=== PATIENT | female | born 1955 | race Caucasian/White ===

== ENCOUNTER 2017-11-22 06:40 | Observation (INO) ==
[2017-11-22] MEDS ORDERED: DEXTROSE 5%-NS 1,000 ML IV ONE (06:54)
[2017-11-22] MEDS ORDERED: 0.9 % SODIUM CHLORIDE 1,000 ML IV ONE (07:06)
[2017-11-22] MEDS ORDERED: LEVOFLOXACIN 750 MG/150 ML BAG IV ONE (07:28)
--- NOTE | 2017-11-22 07:38 | Emergency Department Note ---
SOB HPI - General Chief Complaint: Shortness of Breath/Dyspnea Stated Complaint: cold sweats, shortness of breath Time Seen by Provider: 11/22/17 07:12 Source: patient, family Mode of arrival: ambulatory Limitations: no limitations - History of Present Illness 62 year old female with longstanding intermittent dyspnea who recently underwent nuclear perfusion stress testing on 11/18/[address] Emili Lofton at [facility] which was normal now presenting this morning after waking up this morning feeling fatigued with associated increased dyspnea, cold sweats. No known sick contacts. No dysuria, no cough, no change to urinary frequency. She presents initially with temperature down into 94.0F range, and with glucose initially at 76. Patient is able to speak 3-4 word sentences. Not lethargic nor obtunded, simply slow to respond to questions, mild increased I/E with slight increased work of breathing. - Related Data Home Medications Medication Instructions Recorded Confirmed cholecalciferol (vitamin D3) 2,000 2,000 unit PO QDAY cap 10/11/14 11/22/17 unit capsule gabapentin 300 mg capsule 600 mg PO QHS cap 09/03/15 11/22/17 propranolol 60 mg tablet 60 mg PO DAILY 30 Days #30 02/21/16 11/22/17 tizanidine 2 mg capsule 4 mg PO .COMPLEX cap 12/08/16 11/22/17 aspirin 81 mg tablet,delayed 81 mg PO QDAY 02/26/17 11/22/17 release ticagrelor 90 mg tablet 90 mg PO BID 02/26/17 11/22/17 furosemide 20 mg tablet 20 mg PO QDAY 07/20/17 11/22/17 losartan 100 mg tablet 50 mg PO QDAY 07/20/17 11/22/17 amLODIPine [Norvasc] 5 mg PO DAILY 11/22/17 11/22/17 Previous Rx's Medication Instructions Recorded levothyroxine 100 mcg tablet 100 mcg PO QDAY #90 tab 02/27/17 rizatriptan 10 mg disintegrating 10 mg PO Q2H PRN #12 tab 07/20/17 tablet acetaminophen 300 mg-codeine 30 mg 1 tab PO Q6H PRN #120 tab 08/14/17 tablet lansoprazole 30 mg delayed 30 mg PO QDAY #90 tab 10/01/17 release,disintegrating tablet hydrocodone 10 mg-acetaminophen 1 tab PO QID PRN #120 tab 10/26/17 325 mg tablet Allergies Allergy/AdvReac Type Severity Reaction Status Date / Time No Known Drug Allergies Allergy Verified 11/22/17 06:47 Review of Systems All systems ED: reviewed and negative except as stated. Past Medical History - Past Medical History Source: nursing notes reviewed Medical history: Reports: arthritis, CHF, coronary artery disease, GERD, hyperlipidemia, hypertension, kidney stones (Questionable), migraine, myocardial infarction, osteoporosis, thyroid disease, valvular heart disease, other (Ulcerative colitis, C. difficile) Surgical history ED: Reports: angioplasty/stent, hysterectomy, orthopedic, other (Shoulder) - Social History smoking status: Former smoker Physical Exam Limitations: no limitations General appearance: alert, anxious, in no apparent distress Head: atraumatic, normocephalic Eye: Present: normal appearance, PERRL, EOMI ENT: normal exam, normal oropharynx, mucous membranes dry Neck: Present: normal inspection, full ROM Chest: Present: normal inspection, symmetric chest wall rise Respiratory: Present: other (distant lung sounds wtih faint bibasilar crackles) Cardiovascular: Present: regular rate, normal rhythm, normal heart sounds. Absent: systolic murmur, diastolic murmur, rubs, gallop Abdominal: Present: soft, normal bowel sounds. Absent: distention, tenderness, guarding, rebound Extremities: Present: normal inspection, full ROM. Absent: tenderness Back: Present: normal inspection, full ROM. Absent: tenderness, CVA tenderness (R), CVA tenderness (L) Skin: Present: mottled, other (cool) Course Vital Signs Temperature 94.0 F L 11/22/17 06:41 Pulse Rate 81 11/22/17 06:41 Respiratory Rate 82 H 11/22/17 06:41 Blood Pressure 176/87 11/22/17 06:41 Pulse Oximetry (%) 100 11/22/17 06:41 Temperature 96.9 F L 11/22/17 09:00 Pulse Rate 90 11/22/17 08:45 Respiratory Rate 11 L 11/22/17 07:01 Blood Pressure 139/84 11/22/17 09:00 Pulse Oximetry (%) 99 11/22/17 08:45 Shortness of Breath/Dyspnea - [facility] Narrative Medical decision making narrative: patient presenting meeting SIRS criteria with hypothermia at 94.0F, tachypnea at 20. Underwent UA, XR chest, CBC, CMP, venous lactic acid, procalcitonin, blood culture, which demonstrated + leuk esterase, WBC, with normal venous lactic acid, negative XR chest. Patient given initially D5NS 500cc which corrected mild hypoglycemia from 76 to 220, then switched to warm NS. FC with temperature probe placed. Patient started on Levaquin 750mg IV within first hour of arrival. EKG demonstrating NSR, 0.5-1mm ST depression in inferior leads , otherwise normal. Patient handed off to Dr. Vicente at 9am with plans for admission for urosepsis and hypothermia. - Lab Data Lab results reviewed: Yes I reviewed the patient's lab results. Result diagrams: 11/22/17 06:56 11/22/17 06:56 Lab Results 11/22/17 11/22/17 11/22/17 Range/Units 06:56 06:56 07:05 WBC 12.8 H (4.5-11.0) K/mcL RBC 3.84 L (4.00-5.20) M/mcL Hgb 11.9 L (12.0-15.0) g/dL Hct 35.4 L (36.0-48.0) % POC Hct 38.0 (36.0-48.0) % MCV 92.4 (80.0-100.0) fL MCH 31.1 (26.0-34.0) pg MCHC 33.7 (31.0-36.0) g/dL RDW 13.5 (11.5-14.5) % Plt Count 387 (140-440) K/mcL MPV 7.5 (7.4-10.4) fL Gran % 73.9 (38.0-78.0) % Lymph % (Auto) 18.6 (15.5-49.0) % [place] % (Auto) 5.0 (1.0-12.0) % Eos % (Auto) 2.2 (0.0-7.0) % Baso % (Auto) 0.3 (0.0-2.0) % Gran # 9.5 H (1.8-8.0) K/mcL Lymph # (Auto) 2.4 (1.5-4.8) K/mcL [place] # (Auto) 0.6 (0.1-0.9) K/mcL Eos # (Auto) 0.3 (0.0-0.7) K/mcL Baso # (Auto) 0 (0.0-0.3) K/mcL D-Dimer (0.00-0.40) ug/ml VBG Lactic Acid 1.0 (0.5-2.2) mmol/L POC Sodium 140 (133-145) mmol/L Sodium 142 (133-145) mmol/L POC Potassium 3.5 (3.3-5.1) mmol/L Potassium 3.6 (3.3-5.1) mmol/L POC Chloride 104 (96-108) mmol/L Chloride 100 (96-108) mmol/L Carbon Dioxide 20 L (22-30) mmol/L POC Total CO2 22 (22-30) mmol/L Anion Gap 22.0 H (8-16) POC BUN 20 (8-23) mg/dl BUN 19 (8-23) mg/dl Creatinine 1.0 (0.6-1.1) mg/dl POC Creatinine 1.0 (0.6-1.1) mg/dl GFR Calculation 61 Glucose 73 (70-105) mg/dL POC Glucose 76 (70-105) mg/dL Calcium 10.2 (8.6-10.4) mg/dl POC WB Ioniz Calcium 1.19 (1.16-1.32) mmol/L Total Bilirubin 1.0 (0.0-1.0) mg/dL AST 128 H (0-37) U/l ALT 35 (0-40) U/l Alkaline Phosphatase 60 (39-117) U/L Troponin T (0-0.03) ng/ml Total Protein 7.5 (5.9-8.4) gm/dL Albumin 4.5 (3.2-5.2) gm/dL Globulin 3.0 (2.2-3.7) gm/dL Albumin/Globulin Ratio 1.5 (1.0-2.3) Urine Color Urine Appearance Urine pH (5.0-9.0) Ur Specific [place] (1.000-1.035) Urine Protein (NEG) mg/dL Urine Glucose (UA) (NEG) mg/dL Urine Ketones (NEG) mg/dL Urine Occult Blood (<0.03) mg/dL Urine Nitrate (NEG) Urine Bilirubin (NEG) mg/dL Urine Urobilinogen (NEG) mg/dL Ur Leukocyte Esterase (NEG) /uL Urine RBC (0-1) /hpf Urine WBC (0-4) /hpf Ur Squamous Epith Cells (0-4) /hpf Urine Bacteria (0) /hpf Hyaline Casts (0-2) /lpf Urine Mucus (0) /hpf Ur Culture Indicated? 11/22/17 11/22/17 11/22/17 Range/Units 07:45 07:45 08:05 WBC (4.5-11.0) K/mcL RBC (4.00-5.20) M/mcL Hgb (12.0-15.0) g/dL Hct (36.0-48.0) % POC Hct (36.0-48.0) % MCV (80.0-100.0) fL MCH (26.0-34.0) pg MCHC (31.0-36.0) g/dL RDW (11.5-14.5) % Plt Count (140-440) K/mcL MPV (7.4-10.4) fL Gran % (38.0-78.0) % Lymph % (Auto) (15.5-49.0) % [place] % (Auto) (1.0-12.0) % Eos % (Auto) (0.0-7.0) % Baso % (Auto) (0.0-2.0) % Gran # (1.8-8.0) K/mcL Lymph # (Auto) (1.5-4.8) K/mcL [place] # (Auto) (0.1-0.9) K/mcL Eos # (Auto) (0.0-0.7) K/mcL Baso # (Auto) (0.0-0.3) K/mcL D-Dimer 0.30 (0.00-0.40) ug/ml VBG Lactic Acid (0.5-2.2) mmol/L POC Sodium (133-145) mmol/L Sodium (133-145) mmol/L POC Potassium (3.3-5.1) mmol/L Potassium (3.3-5.1) mmol/L POC Chloride (96-108) mmol/L Chloride (96-108) mmol/L Carbon Dioxide (22-30) mmol/L POC Total CO2 (22-30) mmol/L Anion Gap (8-16) POC BUN (8-23) mg/dl BUN (8-23) mg/dl Creatinine (0.6-1.1) mg/dl POC Creatinine (0.6-1.1) mg/dl GFR Calculation Glucose (70-105) mg/dL POC Glucose (70-105) mg/dL Calcium (8.6-10.4) mg/dl POC WB Ioniz Calcium (1.16-1.32) mmol/L Total Bilirubin (0.0-1.0) mg/dL AST (0-37) U/l ALT (0-40) U/l Alkaline Phosphatase (39-117) U/L Troponin T < 0.01 (0-0.03) ng/ml Total Protein (5.9-8.4) gm/dL Albumin (3.2-5.2) gm/dL Globulin (2.2-3.7) gm/dL Albumin/Globulin Ratio (1.0-2.3) Urine Color Yellow Urine Appearance Hazy Urine pH 6.0 (5.0-9.0) Ur Specific [place] 1.011 (1.000-1.035) Urine Protein Neg (NEG) mg/dL Urine Glucose (UA) 150 A (NEG) mg/dL Urine Ketones 20 A (NEG) mg/dL Urine Occult Blood 0.03 A (<0.03) mg/dL Urine Nitrate Neg (NEG) Urine Bilirubin Neg (NEG) mg/dL Urine Urobilinogen Neg (NEG) mg/dL Ur Leukocyte Esterase Neg (NEG) /uL Urine RBC < 1 (0-1) /hpf Urine WBC < 1 (0-4) /hpf Ur Squamous Epith Cells 3 (0-4) /hpf Urine Bacteria Few A (0) /hpf Hyaline Casts 5 H (0-2) /lpf Urine Mucus Few (0) /hpf Ur Culture Indicated? Yes - Radiology Data Radiology results reviewed: Yes I reviewed the patient's radiology results. Disposition Pt seen by PAINTING INSTRUCTOR/PA only: No Clinical Impression: Sepsis Qualifiers: Sepsis type: sepsis due to unspecified organism Qualified Code(s): A41.9 - Sepsis, unspecified organism UTI (urinary tract infection) Qualifiers: Urinary tract infection type: acute pyelonephritis Qualified Code(s): N10 - Acute pyelonephritis Disposition: Still a Patient Referrals: Joe Camejo MD [Primary Care Provider] -
[2017-11-22 07:39] LABS: Basophils # (Auto) 0 K/mcL (0.0-0.3); Basophils % (Auto) 0.3 % (0.0-2.0); Eosinophils # (Auto) 0.3 K/mcL (0.0-0.7); Eosinophils % (Auto) 2.2 % (0.0-7.0); Granulocytes % (Auto) 73.9 % (38.0-78.0); Lymphocytes # (Auto) 2.4 K/mcL (1.5-4.8); Lymphocytes % (Auto) 18.6 % (15.5-49.0); Mean Cell Volume 92.4 fL (80.0-100.0); Mean Corpuscular HGB Conc 33.7 g/dL (31.0-36.0); Mean Corpuscular Hemoglobin 31.1 pg (26.0-34.0); Monocytes # (Auto) 0.6 K/mcL (0.1-0.9); Platelet Count 387 K/mcL (140-440); RBC 3.84 M/mcL (4.00-5.20); Red Cell Distribution Width 13.5 % (11.5-14.5)
[2017-11-22 08:03] LABS: ALT/SGPT 35 U/l (0-40); Albumin 4.5 gm/dL (3.2-5.2); Albumin/Globulin Ratio 1.5 (1.0-2.3); Alkaline Phosphatase 60 U/L (39-117); Blood Urea Nitrogen 19 mg/dl (8-23)
[2017-11-22 08:46] LABS: Appearance,Urine HAZY; Bacteria,Urine FEW /hpf (0); Bilirubin,Urine NEG (NEG); Color,Urine YELLOW; Glucose,Urine (UA) 150 mg/dL (NEG); Leukocyte Esterase,Urine NEG /uL (NEG); Mucus,Urine FEW /hpf (0); Protein,Urine NEG (NEG); Specific Gravity,Urine 1.011 (1.000-1.035); Urine Blood 0.03 mg/dL (<0.03); Urine Hyaline Cast 5 /lpf (0-2); Urine RBC < 1 /hpf (0-1); Urine Squamous Epithelial Cell 3 /hpf (0-4); Urine WBC < 1 /hpf (0-4); Urobilinogen,Urine NEG (NEG)
[2017-11-22] MEDS ORDERED: 0.9 % SODIUM CHLORIDE 2,000 ML IV ONE (09:31)
[2017-11-22] MEDS ORDERED: 0.9 % SODIUM CHLORIDE 1,000 ML IV SCH (09:45)
[2017-11-22] MEDS ORDERED: THIAMINE 100 MG in 0.9 % SODIUM CHLORIDE 50 ML IV SCH (10:22)
[2017-11-22] MEDS ORDERED: ONDANSETRON 4 MG/2 ML VIAL IV PRN (10:22)
[2017-11-22] MEDS ORDERED: ACETAMINOPHEN W/CODEINE #3 1 TABLET PO PRN (10:22)
[2017-11-22] MEDS ORDERED: LACTATED RINGERS 1,000 ML IV SCH ×2 (10:22→14:05)
[2017-11-22] MEDS ORDERED: oxyCODONE HCL 5 MG TABLET PO PRN (10:22)
[2017-11-22] MEDS ORDERED: HYDROmorphone 2 MG/ML VIAL IV PRN (10:22)
[2017-11-22] MEDS ORDERED: ACETAMINOPHEN 325 MG TABLET PO PRN (10:22)
[2017-11-22] MEDS ORDERED: NALOXONE HCL 0.4 MG/ML VIAL IV PRN (10:22)
[2017-11-22] MEDS ORDERED: RIZATRIPTAN BENZOATE 10 MG PO PRN (10:22)
[2017-11-22 11:02] LABS: Amphetamine Screen,Urine NONE DETECTED (NONDETECTED); Benzodiazepines Screen,Urine NONE DETECTED (NONDETECTED); Cocaine Screen,Urine NONE DETECTED (NONDETECTED); Opiate Screen,Urine SUSPECT POSITIVE (NONDETECTED); Oxycodone, Urine Screen NONE DETECTED (NONDETECTED)
[2017-11-22] MEDS: MULTIVIT,THER IRON,CA,FA & MIN 1 TABLET PO SCH (11:16)
[2017-11-22] MEDS: FOLIC ACID 1 MG TABLET PO SCH (11:16)
--- NOTE | 2017-11-22 12:56 | Internal Med History&Physical ---
Medical - H&P: HPI Patient information: Note initiated : 11/22/17 at 12:53 pm Service Date, if different from initiated Date: [] Patient: Nata Fajardo 62 y/o F admitted on 11/22/17 for cold sweats, shortness of breath. Chief Complaint: [] History of present illness: Ms. Fajardo is a 62 year old Female with h/o hypothyroidism, HTN, CAD s/p stent , presented to the ER this AM with vague complaints. Its noted that the patient has been havnig sob on exertion for a while, she had a stress test by her baffle installer which was interpreted as negative. This AM she was fine around 4.30am, she woke up to go to the bathroom, she was feeling hot and she opened the windows, the patient later around 5-530 started to get sudden onset chills, she was confused and slow to react to verbal commands, she was feeling very weak, fatigued, had some sweating. She was brought to the ER for further evaluation. In the ER during presentation, she was noted to be have glucose of 66, T of 94, and she was slow to respond. the patient had mild leucocytosis, neg ua, neg chest x ray neg chemistry IV fluids, IV antibiotics were given, pt warmed with warm blanket/ bear hugger Given slow cognition, low temperature, and complex presentation, patient admitted to the hospital for further management. The patient notes she drinks 2-3 glasses of wine, no recent changes in medications, she reports compliance with medication, by the bed side notes she appears slower than usual. She has lost some weight, 20 lbs for last few years? Her bmi is low at 15, notes she is a fincky eater, does not eat much. pt had hysterectomy at a young age, was taking estrogen supplements till few months ago, has intermittent vasomotor symptoms, not taken estrogen as was weaned off by pcp Her tsh was low 0.03, t3,t4 pending, on levothyroxine, Her am cortisol level was high 33 After admission, she again had one more episode of low glucose, associated with sweating, she was given juice which improved her symptoms. All systems: reviewed and no additional remarkable complaints except as stated ( 10 point ros neg as except in HPI) Medical - H&P: PMH Medical history: Medical History (Last Updated 11/03/17 @ 11:37 by Rosanna Lees) Hypothyroidism (Chronic) Basal cell carcinoma (Chronic) Helicobacter pylori colitis (Chronic) GERD (gastroesophageal reflux disease) (Chronic) Dyspnea (Chronic) Hyperlipidemia (Chronic) CAD (coronary artery disease) (Chronic) Chronic diarrhea (Chronic) Stool culture positive for Clostridium difficile (Chronic) Osteoarthritis of carpometacarpal joints of both thumbs (Chronic) Thrombocytosis (Chronic) Osteoporosis, idiopathic (Chronic) Acquired hypothyroidism (Chronic) Hypertension, essential (Chronic) Ulcerative colitis (Chronic 11/29/09) Anemia (Chronic) History of left heart catheterization (Chronic 01/29/17) History of revision of total replacement of right hip joint (Chronic) Abrasion (Resolved) Basal cell carcinoma of right upper arm (Resolved 09/04/14) Esophageal reflux (Resolved) Helicobacter pylori infection (Resolved) Pathological fracture of hip (Resolved) Skin abrasion (Resolved) Surgical history: Past Surgical History (Last Updated 11/03/17 @ 11:24 by Rosanna Lees) History of esophagogastroduodenoscopy (Resolved) S/P skin biopsy (Resolved) History of colonoscopy (Chronic) History of appendectomy (Chronic) History of cardiac cath (Chronic 05/29/17) History of exploratory laparotomy (Chronic) History of heart surgery (Chronic 01/29/17) History of incision and drainage (Chronic ~1994) History of shoulder surgery (Chronic) History of total abdominal hysterectomy and bilateral salpingo-oophorectomy ( Chronic) History of hip surgery (Resolved) History of hysterectomy (Resolved) History of shoulder surgery (Resolved) Pertinent family history: Family History (Last Updated 11/03/17 @ 11:29 by Rosanna Lees) Mother Cardiovascular disease CAD (coronary artery disease) Essential hypertension Aunt Malignant neoplasm of cervix Brother Family history of malignant neoplasm Colon cancer Father Family history of malignant neoplasm of prostate Lymphoma Cardiovascular disease Heart failure Unknown Depression Essential hypertension Malignant Neoplasm of Skin Grandmother Aneurysm Other Family history of brain aneurysm Medical - H&P: Meds Home Medications Medication Instructions Recorded Confirmed Type cholecalciferol (vitamin D3) 2,000 2,000 unit PO QDAY cap 10/11/14 11/22/17 History unit capsule gabapentin 300 mg capsule 600 mg PO QHS cap 09/03/15 11/22/17 History propranolol 60 mg tablet 60 mg PO DAILY 30 Days #30 02/21/16 11/22/17 History tizanidine 2 mg capsule 4 mg PO HS cap 12/08/16 11/22/17 History aspirin 81 mg tablet,delayed 81 mg PO QDAY 02/26/17 11/22/17 History release ticagrelor 90 mg tablet 90 mg PO BID 02/26/17 11/22/17 History levothyroxine 100 mcg tablet 100 mcg PO QDAY #90 tab 02/27/17 11/22/17 Rx furosemide 20 mg tablet 20 mg PO QDAY 07/20/17 11/22/17 History losartan 100 mg tablet 50 mg PO QDAY 07/20/17 11/22/17 History lansoprazole 30 mg delayed 30 mg PO QDAY #90 tab 10/01/17 11/22/17 Rx release,disintegrating tablet amLODIPine [Norvasc] 5 mg PO DAILY 11/22/17 11/22/17 History Allergies Allergy/AdvReac Type Severity Reaction Status Date / Time No Known Drug Allergies Allergy Verified 11/22/17 10:41 Medical - H&P: Exam - Constitutional Vitals: Temp Pulse Resp BP Pulse Ox 97.7 F 83 12 145/79 99 11/22/17 12:28 11/22/17 12:28 11/22/17 12:28 11/22/17 12:28 11/22/17 12:28 Exam: GENERAL: The patient is a well-developed, well-nourished in no apparent distress. Is alert and oriented x3. VITAL SIGNS: Reviewed and as noted elsewhere. HEENT: Head is normocephalic and atraumatic. Extraocular muscles are intact. Pupils are equal, round, and reactive to light. Nares appeared normal. Mouth appears any without lesions. Mucous membranes are moist. NECK: Normal to inspection, Supple, No lymphadenopathy or thyromegaly. LUNGS: Air entry equal on both sides, no wheezing, crackles or rhonchi noted. No accessory muscles of respiration HEART: Regular rate and rhythm normal, S1 and S2 heard, no Gallop, S3 or Rub Noted, No Gross murmur heard. ABDOMEN: Soft, nontender, and nondistended. Positive bowel sounds. No hepatosplenomegaly was noted. EXTREMITIES: No cyanosis, clubbing, rash, lesions or edema. NEUROLOGIC: Cranial nerves II through XII are grossly intact. Motor and Sensory System Grossly Intact PSYCHIATRIC: flat affect, Normal Mood. Appropriate Behavior. SKIN: No ulceration or wounds noted, No jaundice, No rash noted. Medical - H&P: Reslt - Labs CBC & Chem 7: 11/22/17 06:56 11/22/17 06:56 Labs: Short CBC 11/22/17 Range/Units 06:56 WBC 12.8 H (4.5-11.0) K/mcL Hgb 11.9 L (12.0-15.0) g/dL Hct 35.4 L (36.0-48.0) % Plt Count 387 (140-440) K/mcL BMP 11/22/17 06:56 Sodium 142 Potassium 3.6 Chloride 100 Carbon Dioxide 20 L BUN 19 Creatinine 1.0 Glucose 73 Calcium 10.2 Cardiac Enzymes 11/22/17 Range/Units 07:45 Troponin T < 0.01 (0-0.03) ng/ml Liver Function 11/22/17 Range/Units 06:56 Total Bilirubin 1.0 (0.0-1.0) mg/dL AST 128 H (0-37) U/l ALT 35 (0-40) U/l Alkaline Phosphatase 60 (39-117) U/L Albumin 4.5 (3.2-5.2) gm/dL Urine 11/22/17 Range/Units 08:05 Urine Color Yellow Urine Appearance Hazy Urine pH 6.0 (5.0-9.0) Ur Specific [place] 1.011 (1.000-1.035) Urine Protein Neg (NEG) mg/dL Urine Glucose (UA) 150 A (NEG) mg/dL Medical - H&P: A/P - Narrative A/P Narrative: A/P Hypoglycemia Hypothermia ? Occult infection Low TSH Hypertension Chr migraine headaches Coronary artery disease Malnutrition Heavy alcohol consumption Plan Admit to med surg given hypothermia, hypoglycemia, unprovoked IV thiamine given h/o etoh monitor pt closely active warming follow thyroid studies check c peptide, insulin levels, sulfonylurea screen, d/c propranolol as can cause low glucose, hypothermia as well as mask findings of hypoglycemia which can be detrimental will monitor pt and consider alternative/ lower dose. Consider Abdomen and Pelvis CT Etoh may cause patients symptoms, etoh screen is neg, malnutrition due to poor intake is possible, given low bmi, underlying psych issue? DVT hep sq Diet Regular Full code Medical - H&P: Qual - VTE Deep Vein Thrombosis/Pulmonary Embolism Present on Admission: No Social History - Tobacco smoking status: Former smoker
[2017-11-22 13:03] LABS: Free T4 (Free Thyroxine) 3.26 ng/dl (0.7-1.7)
--- NOTE | 2017-11-22 13:18 | XRay Report ---
CLINICAL INFORMATION: Shortness of breath COMPARISON: 05/24/2007 FINDINGS: The lung volumes are elevated and there is mild wall thickening of the central bronchi suggesting chronic bronchitis or asthma - this is unchanged. Mild pleural parenchymal scarring in the apices is also stable. There are no new pulmonary abnormalities. Prominent nipple shadows overlie the lung bases. No effusions IMPRESSION: Chronic bronchitis or asthma - stable Interpreted and Authenticated by: Roberto Marie 11/22/17
[2017-11-22 14:00] LABS: Beta Hydroxybutyrate 3.57 mmol/L (< 0.27)
[2017-11-22] MEDS: 0.9 % SODIUM CHLORIDE 10 ML SYRINGE IV SCH ×2 (14:35→20:32)
[2017-11-22] MEDS ORDERED: IOPAMIDOL 100 ML BOTTLE IV ONE (15:46)
[2017-11-22] MEDS: LEVOTHYROXINE 75 MCG TABLET PO SCH (15:49)
[2017-11-22] MEDS: PANTOPRAZOLE 40 MG TABLET PO SCH (15:49)
[2017-11-22] MEDS: amLODIPine 5 MG TABLET PO SCH (15:49)
[2017-11-22] MEDS: ASPIRIN 81 MG TAB.CHEW PO SCH (15:49)
[2017-11-22] MEDS: VITAMIN D3 1,000 UNIT TABLET PO SCH (15:49)
[2017-11-22] MEDS: LOSARTAN 50 MG TABLET PO SCH (15:49)
[2017-11-22] MEDS: DEXTROSE 5%-LR 1,000 ML IV SCH (16:48)
--- NOTE | 2017-11-22 18:18 | Cat Scan Report ---
CLINICAL INFORMATION: Hypoglycemia and weight loss COMPARISON: Abdomen and pelvic CT from three months prior: 08/21/2017 TECHNIQUE: Following enteric contrast, 80 cc of Isovue-300 were injected intravenously, and 60 seconds later, 0.625 mm helical slices were obtained from the mid heart through the subtrochanteric regions. Following reconstruction, 2.5 mm sagittal, coronal and axial reformatted images were processed and reviewed at bone, lung and soft tissue windows. Five minutes later, 0.625 mm helical slices were obtained from the mid heart through the kidneys and viewed at soft tissue windows.The exam was performed using radiation dose optimization techniques including, but not limited to, automated exposure control, adjustment of the mA and/or kV according to patient size and use of iterative reconstruction technique. FINDINGS: Lung bases show no abnormality - no effusion. Small hiatal hernia is noted. The visualized heart is normal. Images through the abdomen show mild portal triad edema throughout the liver - a new finding. Liver shows mild diffuse fatty change, however, it is normal in size and configuration without focal lesion. Small amount of ascites developed in the perihepatic and deep true pelvis and there is mild edema throughout the mesentery - new. The gallbladder is slightly contracted and demonstrates equivocal wall thickening and enhancement. The hepatic, common hepatic and common bile ducts are normal caliber on today's exam: CBD is 6 mm. The pancreatic duct has returned to normal caliber - 2 mm. Pancreas is unremarkable. Both kidneys are normal on today's study. On prior CT, there was mild thickening of the transitional epithelium in the right upper collecting system suggesting pyelonephritis, but this has now resolved. Both adrenal glands, spleen, aorta, including aortic branches, are normal in size, configuration and attenuation without focal lesion. Stomach, small and large bowel are unremarkable. Images through the pelvis show correct be/oophorectomy changes. The urinary bladder unremarkable. Bone windows show right total hip prostheses in anatomic alignment without loosening or infection. No osseous abnormality. IMPRESSION: 1. Mild periportal edema within the liver - a new finding from CT three months ago. There is also a very small amount of ascites in the perihepatic and deep true pelvis region with mild edema about the mesentery. This typically indicates hepatocellular pathology such as hepatitis or developing cirrhosis. Please correlate with LFTs, clinical history of exposure to viruses and hepatotoxins and consider ultrasound-guided liver biopsy for parenchymal tissue diagnosis. Periportal edema can also be seen with elevated right heart pressures; however, there is no CT support for this diagnosis 2. Gallbladder is contracted and shows mild wall enhancement. Suggest gallbladder ultrasound to ensure the absence of cholecystitis Interpreted and Authenticated by: Roberto Marie 11/22/17
[2017-11-22] MEDS: TICAGRELOR 90 MG PO SCH (20:32)
[2017-11-22] MEDS: HEPARIN 5,000 UNIT/ML VIAL SQ SCH (20:49)
[2017-11-22] MEDS ORDERED: tiZANidine 4 MG TABLET PO SCH (21:00)
[2017-11-22] MEDS ORDERED: GABAPENTIN 300 MG CAPSULE PO SCH (21:00)
[2017-11-23] MEDS: DEXTROSE 5%-LR 1,000 ML IV SCH (02:25)
[2017-11-23] MEDS: 0.9 % SODIUM CHLORIDE 10 ML SYRINGE IV SCH ×2 (06:02→15:50)
[2017-11-23] MEDS ORDERED: LEVOTHYROXINE 100 MCG TABLET PO SCH (07:30)
[2017-11-23] MEDS: PANTOPRAZOLE 40 MG TABLET PO SCH (08:55)
[2017-11-23] MEDS: ASPIRIN 81 MG TAB.CHEW PO SCH (08:56)
[2017-11-23] MEDS: VITAMIN D3 1,000 UNIT TABLET PO SCH (08:56)
[2017-11-23] MEDS: LEVOTHYROXINE 75 MCG TABLET PO SCH (08:56)
[2017-11-23] MEDS: amLODIPine 5 MG TABLET PO SCH (08:56)
[2017-11-23] MEDS: FOLIC ACID 1 MG TABLET PO SCH (08:56)
[2017-11-23] MEDS: LOSARTAN 50 MG TABLET PO SCH (08:56)
[2017-11-23] MEDS: MULTIVIT,THER IRON,CA,FA & MIN 1 TABLET PO SCH (08:56)
[2017-11-23 09:00] LABS: Basophils # (Auto) 0 K/mcL (0.0-0.3); Basophils % (Auto) 0.5 % (0.0-2.0); Eosinophils # (Auto) 0.1 K/mcL (0.0-0.7); Eosinophils % (Auto) 1.4 % (0.0-7.0); Granulocytes % (Auto) 65.6 % (38.0-78.0); Lymphocytes # (Auto) 1.6 K/mcL (1.5-4.8); Lymphocytes % (Auto) 24.3 % (15.5-49.0); Mean Cell Volume 90.9 fL (80.0-100.0); Mean Corpuscular HGB Conc 33.7 g/dL (31.0-36.0); Mean Corpuscular Hemoglobin 30.7 pg (26.0-34.0); Monocytes # (Auto) 0.5 K/mcL (0.1-0.9); Monocytes % (Auto) 8.2 % (1.0-12.0); Platelet Count 352 K/mcL (140-440); RBC 3.59 M/mcL (4.00-5.20); Red Cell Distribution Width 13.7 % (11.5-14.5)
[2017-11-23] MEDS ORDERED: LEVOFLOXACIN 500 MG/100 ML BAG IV SCH (09:00)
[2017-11-23] MEDS ORDERED: PROPRANOLOL 10 MG TABLET PO SCH (09:00)
--- NOTE | 2017-11-23 09:08 | Ultrasound Report ---
CLINICAL INFORMATION: Epigastric pain. Equivocal gallbladder wall thickening on recent CT COMPARISON: None. FINDINGS: Liver is normal in size and configuration is slightly hyperechoic compatible with fatty change. This was also noted on CT. No focal hepatic lesion. Gallbladder wall is mildly thickened (4 mm). Is no definite pericholecystic fluid or focal tenderness. Small linear nonshadowing hyperechoic foci along the dependent mucosal surface of the gallbladder neck is likely atypical sludge. No definite stones. Intrahepatic and common bile ducts are normal - CBD is 6 mm. Pancreas is unremarkable. No free fluid IMPRESSION: Mild diffuse gallbladder wall thickening, but no definite stones or focal tenderness. The gallbladder wall thickening could indicate mild acalculous cholecystitis. Alternatively, the wall may be thickened due to adjacent hepatocellular disease or variety of other nongallbladder causes. Interpreted and Authenticated by: Roberto Marie 11/23/17
[2017-11-23] MEDS: TICAGRELOR 90 MG PO SCH (09:09)
[2017-11-23] MEDS: HEPARIN 5,000 UNIT/ML VIAL SQ SCH (09:10)
[2017-11-23 09:16] LABS: ALT/SGPT 59 U/l (0-40); Albumin 3.9 gm/dL (3.2-5.2); Albumin/Globulin Ratio 1.6 (1.0-2.3); Alkaline Phosphatase 64 U/L (39-117); Bilirubin,Direct < 0.2 mg/dL (0.0-0.3); Blood Urea Nitrogen 6 mg/dl (8-23); Gamma Glutamyl Transpeptidase 118 U/L (5-36); Uric Acid 3.4 mg/dL (2.5-8.0)
[2017-11-23] MEDS ORDERED: POTASSIUM PHOSPHATE 40 MEQ in DEXTROSE 5% IN WATER 500 ML IV ONE (09:18)
[2017-11-23] MEDS ORDERED: MAGNESIUM SULFATE 32.48 MEQ in DEXTROSE 5% IN WATER 100 ML IV ONE (09:18)
[2017-11-23] MEDS ORDERED: PROPRANOLOL 60 MG CAP.XL.24H PO SCH (09:28)
[2017-11-23] MEDS: MAGNESIUM SULFATE 2 GM/50 ML BAG IV SCH ×2 (10:11→11:15)
--- NOTE | 2017-11-23 13:50 | Internal Med Progress Note ---
Medical - PN: Subj Patient information: Note initiated : 11/23/17 at 1:48 pm Service Date, if different from initiated Date: [] Patient: Nata Fajardo 62 y/o F admitted on 11/22/17 for Cold Sweats, SOB/ Hypothermia, Hypoglycemia. Chief Complaint: [] Interval history: Ms. Fajardo is a 62 year old Female with h/o hypothyroidism, HTN, CAD s/p stent , presented to the ER this AM with vague complaints. Its noted that the patient has been havnig sob on exertion for a while, she had a stress test by her marine tower operator which was interpreted as negative. This AM she was fine around 4.30am, she woke up to go to the bathroom, she was feeling hot and she opened the windows, the patient later around 5-530 started to get sudden onset chills, she was confused and slow to react to verbal commands, she was feeling very weak, fatigued, had some sweating. She was brought to the ER for further evaluation. In the ER during presentation, she was noted to be have glucose of 66, T of 94, and she was slow to respond. the patient had mild leucocytosis, neg ua, neg chest x ray neg chemistry IV fluids, IV antibiotics were given, pt warmed with warm blanket/ bear hugger Given slow cognition, low temperature, and complex presentation, patient admitted to the hospital for further management. The patient notes she drinks 2-3 glasses of wine, no recent changes in medications, she reports compliance with medication, by the bed side notes she appears slower than usual. She has lost some weight, 20 lbs for last few years? Her bmi is low at 15, notes she is a fincky eater, does not eat much. pt had hysterectomy at a young age, was taking estrogen supplements till few months ago, has intermittent vasomotor symptoms, not taken estrogen as was weaned off by pcp Her tsh was low 0.03, t3,t4 pending, on levothyroxine, Her am cortisol level was high 33 After admission, she again had one more episode of low glucose, associated with sweating, she was given juice which improved her symptoms. 11/23 Patient seen and examined no acute overnight events, doing much better today. The patient has not had any episodes of hypothermia. She need to D10 drip yesterday which we have stopped now. Her glucose level is fine. She has low potassium and low magnesium to phosphorus all of which indicate poor nutritional status. Her BMI is 15. Insulin level was low, hydroxybutyrate unfortunately was elevated indicating starvation ketosis. Alcohol level was negative tox screen negative. Sulfonylurea screen is pending. It is very likely that this patient had hypoglycemia and hypothermia as a result of very poor nutritional status. This has been conveyed to the patient. We will have dietary evaluate the patient today. Beta-blockers can sometimes also present similarly, I will resume propranolol today and monitor the patient for another 24 hours. TSH was low dose of Synthroid cut back from 100 to 75 Pertinent ROS: Denies headache, dizziness Denies chest pain, palpitations Denies cough or shortness of breath Denies abdominal pain, nausea or vomiting. - Constitutional Vitals: Vital Signs Temp Pulse Resp BP Pulse Ox 98.3 F 94 H 18 148/75 99 11/23/17 12:00 11/23/17 04:00 11/23/17 12:00 11/23/17 12:00 11/23/17 12:00 Period Temp Pulse Resp BP Sys/Galvan Pulse Ox Last 24 Hr 97.3 F-98.3 F 83-98 14-20 107-185/63-88 98-100 Intake and Output 11/22/17 11/23/17 11/23/17 21:59 05:59 13:59 Intake Total 2150 / 2150 1432 / 1432 50 / 50 Output Total 1500 / 1500 2400 / 2400 1400 / 1400 Balance 650 / 650 -968 / -968 -1350 / -1350 Weight 103 lb Intake & Output: Intake & Output 11/22/17 11/23/17 11/23/17 21:59 05:59 13:59 Intake Total 2150 / 2150 1432 / 1432 50 / 50 Output Total 1500 / 1500 2400 / 2400 1400 / 1400 Balance 650 / 650 -968 / -968 -1350 / -1350 Weight 103 lb Intake: IV 300 / 300 962 / 962 50 / 50 Dextrose 5%-Lactated Ringers 1, 962 / 962 000 ml @ 100 mls/hr IV .Q10H [facility] Rx#:[id number] Lactated Ringers 1,000 ml @ 125 300 / 300 mls/hr IV .Q8H [facility] Rx#: [id number] Oral 1850 / 1850 470 / 470 Output: Urine Catheter Amount 450 / 450 Void Amount 1050 / 1050 2400 / 2400 1400 / 1400 Other: Meal Dinner Percent of Meal Consumed 10 Stool Color Brown Stool Consistency Loose # Voids 1 2 # Bowel Movements 1 Exam: Constitutional; Afebrile, cooperative, alert, not in distress. thin lady Eyes- No icterus, , No periorbital swelling Ears- Ext ear normal, hearing normal to conversation. Neck- Midline trachea, supple Respiratory system: Air Entry equal on both sides, No crackles or wheezing, no rhonchi. CVS- Rate rhythm regular, S1,S2 heard, no gallop, no rub. Abdomen- Soft nontender abdomen, no organomegaly, no tenderness, no guarding or rigidity, BUSINESS DEPARTMENT CHAIR- AOOx3, moving all extremities, no gross focal deficit noted. Medical - PN: Obj Da - Labs CBC & Chem 7: 11/23/17 08:07 11/23/17 08:07 Labs: Abnormal Lab Results 11/23/17 11/23/17 11/22/17 08:07 08:07 11:46 WBC RBC 3.59 L Hgb 11.0 L Hct 32.7 L Gran # Carbon Dioxide Anion Gap BUN 6 L Insulin Level 0.9 L Phosphorus 1.7 L Magnesium 1.3 L GGT 118 H AST 49 H ALT 59 H Beta-Hydroxybutyrate 3.57 H TSH Free T4 Urine Glucose (UA) Urine Ketones Urine Occult Blood Urine Bacteria Hyaline Casts Urine Opiates Screen 11/22/17 11/22/17 11/22/17 10:30 09:18 08:05 WBC RBC Hgb Hct Gran # Carbon Dioxide Anion Gap BUN Insulin Level Phosphorus Magnesium GGT AST ALT Beta-Hydroxybutyrate TSH Free T4 3.26 H Urine Glucose (UA) 150 A Urine Ketones 20 A Urine Occult Blood 0.03 A Urine Bacteria Few A Hyaline Casts 5 H Urine Opiates Screen Suspect positive A 11/22/17 11/22/17 11/22/17 06:56 06:56 06:56 WBC 12.8 H RBC 3.84 L Hgb 11.9 L Hct 35.4 L Gran # 9.5 H Carbon Dioxide 20 L Anion Gap 22.0 H BUN Insulin Level Phosphorus Magnesium GGT AST 128 H ALT Beta-Hydroxybutyrate TSH 0.03 L Free T4 Urine Glucose (UA) Urine Ketones Urine Occult Blood Urine Bacteria Hyaline Casts Urine Opiates Screen Meds: Medications Acetaminophen (Tylenol) 650 mg PO Q6HP PRN PRN Reason: PAIN/FEVER > 101 Acetaminophen/Codeine Phosphate (Tylenol #3) 1 tab PO Q6HP PRN PRN Reason: MIGRAINES Amlodipine Besylate (Norvasc) 5 mg PO DAILY [facility] Last Admin: 11/23/17 08:56 Dose: 5 mg Aspirin (Aspirin) 81 mg PO DAILY [facility] Last Admin: 11/23/17 08:56 Dose: 81 mg Folic Acid (Folic Acid) 1 mg PO DAILY [facility] Last Admin: 11/23/17 08:56 Dose: 1 mg Gabapentin (Neurontin) 600 mg PO QHS [facility] Last Admin: 11/22/17 20:32 Dose: 600 mg Heparin Sodium (Porcine) (Heparin) 5,000 unit SQ Q12 [facility] Last Admin: 11/23/17 09:10 Dose: Not Given Hydromorphone HCl (Dilaudid) 0.5 mg IV Q2HP PRN PRN Reason: PAIN LEVEL > 6 Thiamine HCl 100 mg/ Sodium (Chloride) 51 mls @ 50.5 mls/hr IV DAILY [facility] Stop: 11/24/17 10:01 Iron Carb/Multivit/[place]/Folic Acid (Multivitamin W/Minerals) 1 tab PO DAILY [facility] Last Admin: 11/23/17 08:56 Dose: 1 tab Levothyroxine Sodium (Synthroid) 75 mcg PO QAMAC [facility] Last Admin: 11/23/17 08:56 Dose: 75 mcg Losartan Potassium (Cozaar) 50 mg PO DAILY [facility] Last Admin: 11/23/17 08:56 Dose: 50 mg Naloxone HCl (Narcan) 0.1 mg IV Q2MIN PRN PRN Reason: Opiate Reversal Ondansetron HCl (Zofran) 4 mg IV Q6HP PRN PRN Reason: Nausea And Vomiting Oxycodone HCl (Roxicodone) 5 mg PO Q4HP PRN PRN Reason: PAIN LEVEL 3-6 Pantoprazole Sodium (Protonix) 40 mg PO QAMAC [facility] Last Admin: 11/23/17 08:55 Dose: 40 mg Ticagrelor [Brilinta (] 90 Mg Tablet) 1 dose PO BID [facility] Last Admin: 11/23/17 09:09 Dose: 1 dose Propranolol HCl (Inderal La) 60 mg PO DAILY [facility] Last Admin: 11/23/17 10:19 Dose: 60 mg Sodium Chloride (Saline Flush) 10 ml IV Q8 [facility] Last Admin: 11/23/17 06:02 Dose: Not Given Tizanidine HCl (Zanaflex) 4 mg PO HS [facility] Last Admin: 11/22/17 20:32 Dose: 4 mg Vitamin D (Vitamin D3) 2,000 unit PO DAILY [facility] Last Admin: 11/23/17 08:56 Dose: 2,000 unit - Impressions GB usg IMPRESSION: Mild diffuse gallbladder wall thickening, but no definite stones or focal tenderness. The gallbladder wall thickening could indicate mild acalculous cholecystitis. Alternatively, the wall may be thickened due to adjacent hepatocellular disease or variety of other nongallbladder causes. Medical - PN: A/P - Time Spent With Patient Total time spent is greater than 50% in coordination of care (as documented) at patient's floor/unit and/or counseling patient: - Narrative A/P Narrative: A/P Hypoglycemia Hypothermia ? Occult infection Low TSH/ Iatrogenic Hyperthyroidism Hypertension Chr migraine headaches Coronary artery disease Malnutrition Heavy alcohol consumption Plan Continue to monitor d/c 10 drip,encourage good oral intake, monitor pt for 24 hrs resume propranolol, check if this is causing symptoms. monitor cut dose of levothyroxine from [address] abdomen pelvis done, no tumors noted, GB usg done, mild thickening, pt clincaly does not have cholecystitis, no abdominal pain, no rigut upper quadrant tenderness, no dyspepsia, Should concern return, will consider HIDA educated regarding etoh cessation. Dietary consult. DVT hep sq Diet Regular Full code Medical - PN: Qual - VTE Deep Vein Thrombosis/Pulmonary Embolism Present on Admission: No
--- NOTE | 2017-11-23 15:52 | Discharge Summary ---
Medical - DS: Prov Patient information: Note initiated : 11/23/17 at 3:44 pm Service Date, if different from initiated Date: [] Patient: Nata Fajardo 62 y/o F admitted on 11/22/17 for Cold Sweats, SOB/ Hypothermia, Hypoglycemia. Chief Complaint: [] Date of admission: 11/22/17 10:12 Discharge date: 11/23/17 Primary care physician: Joe Camejo Admitting clinician: Boubacar Izaguirre Consults: 11/22/17 09:11 Consult to Physician [CONS] Stat Comment: Consulting Provider: Boubacar Izaguirre Reason For Exam: Physician to Consult Discharging clinician: Boubacar Izaguirre Medical - DS: Meds - Discharge Medications Prescriptions: Levothyroxine [Synthroid] 75 mcg PO QAMAC #30 tab Active and Home Medications: Home Medications cholecalciferol (vitamin D3) 2,000 unit capsule 2,000 unit PO QDAY cap [History Confirmed 11/22/17 Last Taken 11/21/17] gabapentin 300 mg capsule 600 mg PO QHS cap 09/03/15 [History Confirmed Last Taken 11/21/17] propranolol 60 mg tablet 60 mg PO DAILY 30 Days #30 02/21/16 [History Confirmed 11/22/17 Last Taken 11/21/17] tizanidine 2 mg capsule 4 mg PO HS cap 12/08/16 [History Confirmed 11/22/17 Last Taken 11/21/17] aspirin 81 mg tablet,delayed release 81 mg PO QDAY 02/26/17 [History Confirmed 11/22/17 Last Taken 11/21/17] ticagrelor 90 mg tablet 90 mg PO BID 02/26/17 [History Confirmed 11/22/17 Last Taken 11/21/17] levothyroxine 100 mcg tablet 100 mcg PO QDAY #90 tab 02/27/17 [Rx Confirmed Last Taken 11/21/17] furosemide 20 mg tablet 20 mg PO QDAY 07/20/17 [History Confirmed 11/22/17 Last Taken 11/21/17] losartan 100 mg tablet 50 mg PO QDAY 07/20/17 [History Confirmed 11/22/17 Last Taken 11/21/17] lansoprazole 30 mg delayed release,disintegrating tablet 30 mg PO QDAY #90 tab 10/01/17 [Rx Confirmed 11/22/17 Last Taken 11/21/17] amLODIPine [Norvasc] 5 mg PO DAILY 11/22/17 [History Confirmed 11/22/17 Last Taken 11/21/17] Medical - DS: Hosp Hospital course: Ms. Fajardo is a 62 year old Female with h/o hypothyroidism, HTN, CAD s/p stent , presented to the ER this AM with vague complaints. Its noted that the patient has been having sob on exertion for a while, she had a stress test by her performing artist which was interpreted as negative. This AM she was fine around 4.30am, she woke up to go to the bathroom, she was feeling hot and she opened the windows, the patient later around 5-530 started to get sudden onset chills, she was confused and slow to react to verbal commands, she was feeling very weak, fatigued, had some sweating. She was brought to the ER for further evaluation. In the ER during presentation, she was noted to be have glucose of 66, Temp of 94 F, and she was slow to respond. the patient had mild leucocytosis, neg ua, neg chest x ray neg chemistry IV fluids, IV antibiotics were given, pt warmed with warm blanket/ bear hugger Given slow cognition, low temperature, and complex presentation, patient admitted to the hospital for further management. The patient notes she drinks 2-3 glasses of wine, no recent changes in medications, she reports compliance with medication, by the bed side notes she appears slower than usual. She has lost some weight, 20 lbs for last few years? Her bmi is low at 15, notes she is a fincky eater, does not eat much. pt had hysterectomy at a young age, was taking estrogen supplements till few months ago, has intermittent vasomotor symptoms, not taken estrogen as was weaned off by pcp Her tsh was low 0.03, [id number] t4 elevated Her am cortisol level was high 33 After admission, she again had one more episode of low glucose, associated with sweating, she was given juice which improved her symptoms. on 11/23 the patient has not had any episodes of hypothermia. glucose drip stopped and she remained asymptomatic, She has low potassium and low magnesium to phosphorus all of which indicate poor nutritional status. Insulin level was low, hydroxybutyrate unfortunately was elevated indicating starvation ketosis. Alcohol level was negative tox screen negative. Sulfonylurea screen is pending. It is very likely that this patient had hypoglycemia and hypothermia as a result of very poor nutritional status. This has been conveyed to the patient. We will have dietary evaluate the patient today. Beta-blockers can sometimes also present similarly, The patients Abdominal CT suggested thickened gb, usg was done which showed mildly thickened gb, she has no symptoms to suggest gall bladder disease, for now I do not feel this needs further workup, should she have any further symptoms, would advise further evaluation by HIDA scan and outpatient surgery referral I wanted the patient to stay in the hospital for another day to observe and ensure that the hypoglycemia does not recur, also to ensure that on her home dose of propranolol she remains asymptomatic Patient did not wish to stay in the hospital, risks of leaving hospital explained, but she still wanted to be discharged as she would nto ahve any picking machine operator helper from hospital early in the morning. She will buy a glucometer and check her glucose at home. Discharge diagnosis: Hypothermia, Hypoglycemia - Time Spent with Patient Total time spent providing and/or coordinating discharge services: Greater than 30 minutes Medical - DS: Exam - Constitutional Vitals: Vital Signs Temp Pulse Resp BP Pulse Ox 11/23/17 12:00 98.3 F 18 148/75 99 11/23/17 07:22 98 F 20 154/86 100 11/23/17 04:00 98.1 F 94 H 18 164/79 99 11/22/17 23:48 97.7 F 85 20 107/63 100 11/22/17 20:00 97.7 F 98 H 20 165/76 100 11/22/17 16:59 97.3 F 83 185/88 100 11/22/17 15:48 98.1 F 84 14 162/79 98 Intake and Output 11/23/17 11/23/17 11/23/17 05:59 13:59 21:59 Intake Total 1432 / 1432 50 / 50 Output Total 2400 / 2400 1400 / 1400 700 / 700 Balance -968 / -968 -1350 / -1350 -700 / -700 Intake: IV 962 / 962 50 / 50 Dextrose 5%-Lactated Ringers 1, 962 / 962 000 ml @ 100 mls/hr IV .Q10H [facility] Rx#:[id number] Oral 470 / 470 Output: Void Amount 2400 / 2400 1400 / 1400 700 / 700 Other: # Voids 1 2 2 Weight 103 lb Patient Weight 11/24/17 05:59 Weight 103 lb Additional comments: Constitutional; Afebrile, cooperative, alert, not in distress. Eyes- No icterus, , No periorbital swelling Ears- Ext ear normal, hearing normal to conversation. Neck- Midline trachea, supple Respiratory system: Air Entry equal on both sides, No crackles or wheezing, no rhonchi. CVS- Rate rhythm regular, S1,S2 heard, no gallop, no rub. Abdomen- Soft nontender abdomen, no organomegaly, no tenderness, no guarding or rigidity, SHELLFISH PROCESSING LABORER- AOOx3, moving all extremities, no gross focal deficit noted. Medical - DS: Data Labs on day of discharge: Labs from last 24 hours 11/23/17 11/23/17 11/23/17 08:07 08:07 08:07 WBC 6.6 RBC 3.59 L Hgb 11.0 L Hct 32.7 L MCV 90.9 MCH 30.7 MCHC 33.7 RDW 13.7 Plt Count 352 MPV 7.5 Gran % 65.6 Lymph % (Auto) 24.3 [place] % (Auto) 8.2 Eos % (Auto) 1.4 Baso % (Auto) 0.5 Gran # 4.4 Lymph # (Auto) 1.6 [place] # (Auto) 0.5 Eos # (Auto) 0.1 Baso # (Auto) 0 Sodium 141 Potassium 3.5 Chloride 102 Carbon Dioxide 26 Anion Gap 13.0 BUN 6 L Creatinine 0.8 GFR Calculation 80 Glucose 104 Uric Acid 3.4 Calcium 9.1 Phosphorus 1.7 L Magnesium 1.3 L Total Bilirubin 0.5 Direct Bilirubin < 0.2 GGT 118 H AST 49 H ALT 59 H Alkaline Phosphatase 64 Lactate Dehydrogenase 181 Total Protein 6.3 Albumin 3.9 Globulin 2.4 Albumin/Globulin Ratio 1.6 Triglycerides 118 Beta-Hydroxybutyrate 0.11 Preliminary micro results at discharge 11/22/17 08:05 Urine Culture - Preliminary Urine - Catheterized 11/22/17 07:16 Blood Culture - Preliminary Blood 11/22/17 07:05 Blood Culture - Preliminary Blood Medical - DS: A/P - Patient/Caregiver Discharge Instructions Activity: increase activity as tolerated Diet: Regular Diet, Cardiac Additional Instructions: FOllwo up with PCP in 1 -2 weeks Your dose of levothyroxine is changed from 100mcg to 75mcg Please make sure your PCP checks your thyroid function in 1-2 weeks GO to the ER if worsening symptoms, chest pain, shortness of breath, fever or any other acute concerns. I have not made any changes to any other home medications, please take them as prescribed by your provider. - Follow up Plan Follow up with: Joe Camejo MD [Primary Care Provider] - Disposition: Home, Self-Care Prognosis: Fair Rehab Potential: Fair I certify that the patient requires SNF services: No Overall status at discharge: patient is back to baseline Medical - DS: Qual - VTE Deep Vein Thrombosis/Pulmonary Embolism Present on Admission: No
[2017-11-24] MEDS ORDERED: THIAMINE 100 MG in 0.9 % SODIUM CHLORIDE 50 ML IV SCH (09:00)
[2017-11-26 07:56] LABS: C-Peptide 0.13 ng/mL (0.80-3.85)
== END 2017-11-23 17:13 | disposition home or self-care (01) ==
LOC: ED 06:40 → MEDSUR 10:10 → INTOOBSV 10:12
PROVIDERS: ADMIT Internal Medicine; ATTEND Internal Medicine